=== PATIENT | male | born 1985 | race Caucasian/White ===

== ENCOUNTER 2018-12-23 22:19 | Emergency (ER) | payer MEDICAID ==
[2018-12-23 22:28] VITALS: TEMP 98
[2018-12-23] MEDS ORDERED: Sodium Chloride 0.9% 1,000 ML IV ONE (23:02)
[2018-12-23 23:08] LABS: BASO % 0.4 % (0.0-2.0); EOS % 0.2 % (0.0-4.0); HEMOGLOBIN 16.4 g/dL (12.0-18.0); LYMPH # 0.7 K/uL (1.0-4.3); LYMPH % 10.2 % (20.0-40.0); MEAN CELL VOLUME 101.8 fL (80.0-94.0); MEAN CORPUSCULAR HEMOGLOBIN 33.9 pg (27.0-31.0); MEAN CORPUSCULAR HGB CONC 33.3 g/dL (33.0-37.0); MEAN PLATELET VOLUME 9.4 fL (7.2-11.7); MONO # 0.4 K/uL (0.0-0.8); MONO % 6.7 % (0.0-10.0); NEUT # 5.3 K/uL (1.8-7.0); NEUT % 82.5 % (50.0-75.0); RBC 4.82 Mil/uL (4.40-5.90); RED CELL DISTRIBUTION WIDTH 14.3 % (11.5-14.5); WHITE BLOOD COUNT 6.4 K/uL (4.8-10.8)
[2018-12-23 23:11] LABS: SQUAMOUS EPITHIAL < 1 /hpf (0-5); URINE BACTERIA RARE (<OCC); URINE BILIRUBIN NEGATIVE (NEGATIVE); URINE BLOOD NEGATIVE (NEGATIVE); URINE CLARITY Clear (Clear); URINE COLOR Yellow (YELLOW); URINE GLUCOSE (UA) NORMAL (Normal); URINE LEUKOCYTE ESTERASE NEG Leu/uL (Negative); URINE PROTEIN NEGATIVE (NEGATIVE)
[2018-12-23 23:20] LABS: ALB/GLOB RATIO 1.5 (1.0-2.1); ALBUMIN 4.1 g/dL (3.5-5.0); ALT/SGPT 33 U/L (21-72); AST/SGOT 29 U/L (17-59); BLOOD UREA NITROGEN 12 mg/dL (9-20); CALCIUM 8.9 mg/dl (8.6-10.4); GFR NON-AFRICAN AMERICAN > 60; LIPASE 21 U/L (23-300)
--- NOTE | 2018-12-23 23:51 | C.PDOC ---
History Of Present Illness Patient with Down's syndrome presents to the ER with mother who reports patient has been complaining of nausea and vomiting since 1300 and has also been somewhat constipated. Denies fever or chills. Time Seen by Provider: 12/23/18 22:45 Chief Complaint (Nursing): GI Problem History Per: Family History/Exam Limitations: no limitations Onset/Duration Of Symptoms: Hrs Current Symptoms Are (Timing): Still Present Severity: Moderate Pain Scale Rating Of: 4 Associated Symptoms: Nausea, Vomiting, Constipation. denies: Fever, Chills Exacerbating Factors: None Alleviating Factors: None Recent travel outside of the [place]: No Past Medical History Reviewed: Historical Data, Nursing Documentation, Vital Signs Vital Signs: Last Vital Signs Temp 98.0 F 12/23/18 22:25 Pulse 95 H 12/23/18 22:25 Resp 16 12/23/18 22:25 BP 113/73 12/23/18 22:25 Pulse Ox 98 12/23/18 22:25 - Medical History PMH: Seizures Surgical History: Cholecystectomy Family History: States: Unknown Family Hx - Social History Hx Tobacco Use: No Hx Alcohol Use: No Hx Substance Use: No - Immunization History Hx Tetanus Toxoid Vaccination: Yes Hx Influenza Vaccination: No Hx Pneumococcal Vaccination: Yes Review Of Systems Review Of Systems: ROS cannot be obtained secondary to pt's inabilty to answer questions. Physical Exam - Physical Exam Appears: Non-toxic Skin: Warm, Dry Head: Normacephalic Eye(s): bilateral: Normal Inspection Oral Mucosa: Moist Neck: Trachea Midline, Supple Chest: Symmetrical, No Tenderness Cardiovascular: Rhythm Regular Respiratory: No Rales, No Rhonchi, No Wheezing Gastrointestinal/Abdominal: Soft, No Tenderness, Other (Tympanic to percussion) Back: No CVA Tenderness Neurological/Psych: Other (At baseline as per mother) ED Course And Treatment - Laboratory Results Result Diagrams: 12/23/18 23:06 12/23/18 23:06 Lab Results: Total Bilirubin 0.5 mg/dL (0.2-1.3) 12/23/18 23:06 AST 29 U/L (17-59) 12/23/18 23:06 ALT 33 U/L (21-72) 12/23/18 23:06 Alkaline Phosphatase 80 U/L (38-126) 12/23/18 23:06 Total Protein 6.9 g/dL (6.3-8.3) 12/23/18 23:06 Albumin 4.1 g/dL (3.5-5.0) 12/23/18 23:06 Globulin 2.7 gm/dL (2.2-3.9) 12/23/18 23:06 Albumin/Globulin Ratio 1.5 (1.0-2.1) 12/23/18 23:06 Lipase 21 U/L (23-300) L 12/23/18 23:06 Urine Color Yellow (YELLOW) 12/23/18 23:06 Urine Clarity Clear (Clear) 12/23/18 23:06 Urine pH 7.0 (5.0-8.0) 12/23/18 23:06 Ur Specific [place] 1.015 (1.003-1.030) 12/23/18 23:06 Urine Protein Negative mg/dL (NEGATIVE) 12/23/18 23:06 Urine Glucose (UA) Normal mg/dL (Normal) 12/23/18 23:06 Urine Ketones Negative mg/dL (NEGATIVE) 12/23/18 23:06 Urine Blood Negative (NEGATIVE) 12/23/18 23:06 Urine Nitrate Negative (NEGATIVE) 12/23/18 23:06 Urine Bilirubin Negative (NEGATIVE) 12/23/18 23:06 Urine Urobilinogen 2.0 mg/dL (0.2-1.0) 12/23/18 23:06 Ur Leukocyte Esterase Neg Pam/uL (Negative) 12/23/18 23:06 Urine WBC (Auto) 1 /hpf (0-5) 12/23/18 23:06 Urine RBC (Auto) 1 /hpf (0-3) 12/23/18 23:06 Ur Squamous Epith Cells < 1 /hpf (0-5) 12/23/18 23:06 Urine Bacteria Rare (<OCC) 12/23/18 23:06 O2 Sat by Pulse Oximetry: 98 (Room air) Pulse Ox Interpretation: Normal Progress Note: Blood work and urinalysis ordered. IV fluids administered. 1 am tolerating po. no vomiting Reevaluation Time: 01:00 Reassessment Condition: Improved Disposition Counseled Patient/Family Regarding: Studies Performed, Diagnosis, Need For Followup, Rx Given - Disposition Referrals: Alonzo Carmona MD [Staff Provider] - Disposition: HOME/ ROUTINE Disposition Time: 01:00 Condition: FAIR Additional Instructions: Please return if symptoms recur Prescriptions: Ondansetron ODT [Zofran ODT] 1 odt PO BID PRN #6 odt PRN Reason: Nausea/Vomiting Instructions: Nausea and Vomiting, Adult (DC) Forms: [employer] ([place]) Print Language: PORTUGUESE - Clinical Impression Clinical Impression: Nausea & vomiting - Scribe Statement The provider has reviewed the documentation as recorded by the Scriblola Aleman All medical record entries made by the Pachecoiblola were at my direction and personally dictated by me. I have reviewed the chart and agree that the record accurately reflects my personal performance of the history, physical exam, medical decision making, and the department course for this patient. I have also personally directed, reviewed, and agree with the discharge instructions and di sposition.
[2018-12-24 01:37] VITALS: BP 115/69; PULSE 66; RESP 19; O2SAT 100
== END 2018-12-24 02:25 | disposition home or self-care (01) ==
LOC: C.ER 22:19
DX: R11.2 Nausea with vomiting, unspecified (principal)
CPT/HCPCS: 80053; 81001; 83690; 85025; 99284; J7030